=== PATIENT | female | born 1965 ===

== ENCOUNTER 2017-05-23 06:30 | Inpatient (IN) | payer OTHER ==
[~2017-05-23] VITALS: Ht 157.5 cm; Wt 76.7 kg
[2017-05-23] MEDS ORDERED: GABAPENTIN800 MG PO (08:36)
[2017-06-06] MEDS ORDERED: NORFLEX100MG PO (09:28)
[2017-06-06] MEDS ORDERED: OXYC1TAB9 PO (09:28)
[2017-06-06] MEDS ORDERED: XARELTO10 MG PO (09:28)
[2017-06-06] MEDS ORDERED: NeurRONTin 100mg cap PO (09:28)
== END 2017-06-06 09:59 | disposition home or self-care (01) | DRG 470 ==
LOC: O/R 06-03 05:10 → SURG 06-03 07:00 → O/R 06-03 15:13 → SURG 06-03 15:13 → SURH 06-03 15:16
PROVIDERS: Orthopaedic Surgery
PROC: 0SRD0J9 Replacement of Left Knee Joint with Synthetic Substitute, Cemented, Open Approach (ICD-10-PCS; principal; 2017-06-03 07:00)
DX: M17.12 Unilateral primary osteoarthritis, left knee (principal)